=== PATIENT | female | born 1980 | race Two or more races ===

== ENCOUNTER 2016-09-05 05:52 | Emergency (ER) | payer OTHER ==
[2016-09-05] MEDS ORDERED: Ketorolac 60 MG/2 ML SDV IM ONE (06:16)
[2016-09-05] MEDS ORDERED: Acetaminophen/HYDROcodone 325-7.5 MG Tab PO ONE (06:17)
--- NOTE | 2016-09-05 06:20 | EDM.PDOC ---
ED HPI GENERAL MEDICAL PROBLEM - General Chief Complaint: Upper Extremity Injury/Pain Stated Complaint: SHOULDER PAIN Time Seen by Provider: 09/05/16 06:10 - History of Present Illness INITIAL COMMENTS - FREE TEXT/NARRATIVE: HISTORY AND PHYSICAL: History of present illness: The patient is a 36-year-old female with no stated medical problems with a history of episodic chronic pain to her left shoulder and presents with more intense pain but similar character to her prior episodes that started at 9 PM last night. 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 She spoke with her provider in the clinic about this chronic pain but because she did not want to see pain management and did not want to take pills and she was not having any active pain this oblong was put on hold. The patient denies any strenuous activity and has had no falls or direct trauma to the area but states that she again has the discomfort in the same location, the anterior part of her shoulder, but his weight more intense it has ever been of late. The pain does not radiate down her arm and she has no neurosensory changes in that arm. She feels that she has limited range of motion because of the discomfort and she has no chest pain fever chills shortness of breath or back pain. Patient did not take any medications prior to coming here or last evening Review of systems: As per history of present illness and below otherwise all systems reviewed and negative. Past medical history: As per history of present illness and as reviewed below otherwise noncontributory. Surgical history: As per history of present illness and as reviewed below otherwise noncontributory. Social history: No reported history of drug or alcohol abuse. Family history: As per history of present illness and as reviewed below otherwise noncontributory. Physical exam: General: Well-developed well-nourished female who is nontoxic but tearful in the room. Vital signs have been reviewed by me. HEENT: Atraumatic, normocephalic, negative for conjunctival pallor or scleral icterus, mucous membranes moist, throat clear, neck supple, nontender, trachea midline. There are no midline step-offs tenderness defects the cervical spine and no trapezius or posterior upper back tenderness Lungs: Clear to auscultation, breath sounds equal bilaterally, chest nontender. Heart: S1S2, regular, negative for clicks, rubs, or JVD. Abdomen: Soft, nondistended, nontender. NABS Pelvis: Deferred Genitourinary: Deferred. Rectal: Deferred. Extremities: Atraumatic, negative for cords or calf pain. Neurovascular unremarkable. There are no palpable deformities of the left upper extremity from the clavicle down to the fingers but there is decreased range of motion at the shoulder joint due to discomfort. There is exquisite tenderness at the trigger point and fullness in this location. There is no warmth or erythema. Neuro: Awake, alert, oriented. Cranial nerves II through XII unremarkable. Cerebellum unremarkable. Motor and sensory unremarkable throughout. Exam nonfocal. Back: There are no midline step-offs or defects of the thoracic or lumbar spine no scapular tenderness on the left and no posterior rib tenderness Diagnostics: Left shoulder x-ray Therapeutics: Toralexandru Shay Impression: Acute on chronic left shoulder pain Definitive disposition and diagnosis as appropriate pending reevaluation and review of above. 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: Musculoskeletal History: Reports: None Neurological History: Reports: None Psychiatric History: Reports: None Endocrine/Metabolic History: Reports: None Hematologic History: Reports: None Immunologic History: Reports: None Oncologic (Cancer) History: Reports: None Dermatologic History: Reports: None - Infectious Disease History Infectious Disease History: Reports: TB - Past Surgical History HEENT Surgical History: Reports: Tonsillectomy Cardiovascular Surgical History: Reports: None Respiratory Surgical History: Reports: None GI Surgical History: Reports: None Female Surgical History: Reports: Breast Implant, Section Social & Family History - Family History Family Medical History: Noncontributory - Tobacco Use Smoking Status *Q: Never Smoker - Recreational Drug Use Recreational Drug Use: No Review of Systems - Review of Systems Review Of Systems: ROS reveals no pertinent complaints other than HPI. Trauma Exam - Physical Exam Exam: See Below (See dictation) Course - Vital Signs Last Recorded V/S: Last Vital Signs Temp 37.1 C 09/05/16 07:18 Pulse 81 09/05/16 07:18 Resp 18 09/05/16 07:18 BP 107/76 09/05/16 07:18 Pulse Ox 100 09/05/16 07:18 - Orders/Labs/Meds Orders: Active Orders 24 hr Category Date Time Status DME for Discharge [COMM] Stat Oth 09/05/16 06:57 Ordered Meds: Medications Discontinued Medications Generic Name Dose Route Start Last Admin Trade Name Gonsalo PRN Reason Stop Dose Admin Hydrocodone Bitart/Acetaminophen 1 tab 09/05/16 06:17 09/05/16 06:50 [place] 325-7.5 Mg PO 09/05/16 06:18 1 tab ONETIME ONE Administration Ketorolac Tromethamine 60 mg 09/05/16 06:16 09/05/16 06:49 Toradol IM 09/05/16 06:17 60 mg ONETIME ONE Administration Prednisone 40 mg 09/05/16 06:58 09/05/16 07:04 Prednisone PO 09/05/16 06:59 40 mg ONETIME ONE Administration Departure - Departure Time of Disposition: 07:10 Disposition: Home, Self-Care 01 Condition: fair Clinical Impression: Chronic left shoulder pain, Bursitis of shoulder, left - Discharge Information Instructions: Shoulder Pain Referrals: PCP,None [Primary Care Provider] - Forms: ED Department Discharge Additional Instructions: The following information is given to patients seen in the emergency department who are being discharged to home. This information is to outline your options for follow-up care. We provide all patients seen in our emergency department with a follow-up referral. The need for follow-up, as well as the timing and circumstances, are variable depending upon the specifics of your emergency department visit. If you don't have a primary care physician on staff, we will provide you with a referral. We always advise you to contact your personal physician following an emergency department visit to inform them of the circumstance of the visit and for follow-up with them and/or the need for any referrals to a consulting specialist. The emergency department will also refer you to a specialist when appropriate. This referral assures that you have the opportunity for followup care with a specialist. All of these measure are taken in an effort to provide you with optimal care, which includes your followup. Under all circumstances we always encourage you to contact your private physician who remains a resource for coordinating your care. When calling for followup care, please make the office aware that this follow-up is from your recent emergency room visit. If for any reason you are refused follow-up, please contact the [facility] emergency department at and ask to speak to the emergency department charge nurse. [facility] Specialty Care--Orthopedic clinic Professional Building [address] [place] [address] [address] [place] [address] [facility] Primary care- Internal Medicine and Family [facility] [address] [place] [id number] Ice to area of swelling and discomfort and use medications as prescribed. Wear sling for comfort to try to start moving the area around as much as you are capable of. Please call and followup with our orthopedics clinic using resources given to above and return to ER as needed and as discussed - My Orders Last 24 Hours: My Active Orders 09/05/16 06:57 DME for Discharge [COMM] Stat - Assessment/Plan Last 24 Hours: My Active Orders 09/05/16 06:57 DME for Discharge [COMM] Stat
[2016-09-05] MEDS ORDERED: predniSONE 20 MG Tab PO ONE (06:58)
[2016-09-05 07:30] VITALS: BP 107/76
--- NOTE | 2016-09-05 10:51 | CR ---
EXAM DATE: 09/05/16 PATIENT'S AGE: 36 Patient: TAMIA MENJIVAR Facility: [place], [place] Site . Site : 1980 Study: XRay Shoulder Left [id number]/16/2017 6:49:54 AM Ordering Physician: Awais Clifton Final Report: INDICATION: chronic pain x 4 years. sudden pain last night INDICATION: Chronic pain for 4 years. TECHNIQUE: Left shoulder, three views. COMPARISON: None FINDINGS: Bones: Alignment is normal. No fractures or bone lesions. There is a calcific or ossific density projected about the left humeral head and greater tuberosity , neither of which appear acute. Joint spaces: Unremarkable. Soft tissues: Unremarkable. IMPRESSION: No acute bone abnormality. No dislocation on the transscapular Y-view. Dictated by Chano Welsh MD @ 09/05/2016 6:55:21 AM Dictated by: Chano Welsh MD @ 09/05/2016 06:55:41 (Electronic Signature) Report Signed by Proxy. [facility] HOSPITALMichelle
== END 2016-09-05 07:18 | disposition home or self-care (01) ==
LOC: MW.ED 05:52
DX: M75.52 Bursitis of left shoulder (principal); Z98.890 Other specified postprocedural states; Z79.899 Other long term (current) drug therapy
CPT/HCPCS: 73030; 96372; 99283; A9270; J1885

== ENCOUNTER → 2016-09-08 | Outpatient (CLI) | payer OTHER ==
[2016-09-08 09:35] LABS: CHLORIDE,CL 105 mmol/L (98-110); SODIUM,NA 138 mmol/L (136-146)
[2016-09-15 16:05] LABS: HPV 16 Not Detected (NOTDET); HPV 18 Not Detected (NOTDET)
== END ==
LOC: MW.CHFP 08:42
PROVIDERS: ATTEND Family Medicine
DX: Z00.00 Encounter for general adult medical examination without abnormal findings (principal); F32.9 Major depressive disorder, single episode, unspecified
CPT/HCPCS: 36415; 80053; 80061; 84443; 85027; 87624; G0145

== ENCOUNTER → 2016-09-12 | Outpatient (CLI) | payer OTHER ==
--- NOTE | 2016-09-12 16:22 | MR ---
EXAMINATION: MRI of the left shoulder HISTORY: Shoulder pain COMPARISON: Radiographs dated 09/05/2016 TECHNIQUE: Multiplanar multisequence images obtained of the left shoulder without contrast. FINDINGS: The acromion is convex. No significant subacromial or subdeltoid fluid. The supraspinatus and infraspinatus tendons appear grossly intact. There is mild edema within the humeral head anterio r and superiorly there is also mild edema within the glenoid. The long head biceps tendon is present within the bicipital groove. The subscapularis and teres minor tendons appear intact. No significan t joint effusion. The inferior glenohumeral ligament is intact. IMPRESSION: 1. Mild subcortical edema within the superior lateral aspect of the humeral head just adjacent to th e supraspinatus insertion anteriorly. 2. No definite evidence of a rotator cuff tear. 3. Mild edema within the glenoid and coracoid process.
== END ==
LOC: MW.MRI 13:00
PROVIDERS: ATTEND Physician Assistant
DX: M25.512 Pain in left shoulder (principal)
CPT/HCPCS: 73221-26-LT; 73221-LT

== ENCOUNTER 2017-07-01 19:28 | Emergency (ER) | payer SELFPAY ==
[2017-07-01] MEDS ORDERED: Sodium Chloride 0.9% 2.5 ML Syringe FLUSH PRN (19:49)
[2017-07-01] MEDS ORDERED: Sodium Chloride 0.9% 10 ML Syringe FLUSH PRN (19:49)
[2017-07-01] MEDS ORDERED: Sodium Chloride 0.9% 1,000 ML IV ONE (19:49)
--- NOTE | 2017-07-01 19:52 | EDM.PDOC ---
ED HPI GENERAL MEDICAL PROBLEM - General Chief Complaint: Syncope Stated Complaint: AMB Time Seen by Provider: 07/01/17 19:38 - History of Present Illness INITIAL COMMENTS - FREE TEXT/NARRATIVE: HISTORY AND PHYSICAL: History of present illness: The patient is a 37-year-old female with a history of anxiety and no other chronic medical problems who in the past is followed with Marybeth Fernando in our clinic but briefly moved away and was not following and now has since returned to [facility] and presents via EMS after having a near syncopal event while being on the toilet. The patient says that she had a normal day today and did eat her meals but she did not hydrate as much as usual and did have several alcoholic beverages. Drinking alcohol is not typical for her. The patient says that she was on the toilet having a bowel movement and was slightly pushing and then felt weak and lightheaded and almost passed out. She did not fall off the toilet. She did not hit her head and has no head neck or back pain and she never had chest pain or shortness of breath. She has no abdominal pain nausea vomiting and no upper respiratory symptoms recently. According to the spouse she has had a similar episode in the past when she was on the toilet. She was told that potentially she pushed too hard and caused her to get lightheaded. She 's never been diagnosed with orthostatic hypotension but her blood pressure tends to run on the lower side per her although the patient does not agree with that. She does say that if she changes positions quickly in the past she will get a "head matthews". Patient denies as her has a vasectomy. The patient currently in the ED denies any complaints and says she's feels back at her baseline although she has some generalized weakness; she had no focal neurologic changes or weakness in any of her extremities throughout these events. Review of systems: As per history of present illness and below otherwise all systems reviewed and negative. Past medical history: As per history of present illness and as reviewed below otherwise noncontributory. Surgical history: As per history of present illness and as reviewed below otherwise noncontributory. Social history: No reported history of drug or alcohol abuse. Family history: As per history of present illness and as reviewed below otherwise noncontributory. Physical exam: Gen.: Well-developed well-nourished female who is nontoxic and vital signs are noted by me. On my examination her blood pressure is 100/60. HEENT: Atraumatic, normocephalic, pupils reactive, negative for conjunctival pallor or scleral icterus, mucous membranes moist, throat clear, neck supple, nontender, trachea midline. Lungs: Clear to auscultation, breath sounds equal bilaterally, chest nontender. Heart: S1S2, regular rate and rhythm no overt murmurs are appreciated Abdomen: Soft, nondistended, nontender. Negative for masses or hepatosplenomegaly. NABS Pelvis: Stable nontender. Genitourinary: Deferred. Rectal: Deferred. Extremities: Atraumatic, negative for cords or calf pain. Neurovascular unremarkable. Full range of motion without defects or deficits Neuro: Awake, alert, oriented. Cranial nerves II through XII unremarkable. Cerebellum unremarkable. Motor and sensory unremarkable throughout. Exam nonfocal. Diagnostics: EKG orthostatic vitals CBC CMP troponin UA chest x-ray CT scan of the head Therapeutics: IV O2 monitor IV fluids Discussed all testing results with the patient and at bedside and the need for follow-up. She has seen Dr. Fernando in the past and I expressed that she can call and schedule an appointment to follow-up with her. I've also discussed dietary modification for the low protein albumin and calcium levels. She states understanding Impression: Near syncope, history of same stable, rule out vasovagal event and orthostatic hypotension Definitive disposition and diagnosis as appropriate pending reevaluation and review of above. 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: Musculoskeletal History: Reports: None Neurological History: Reports: None Psychiatric History: Reports: Anxiety, Depression Endocrine/Metabolic History: Reports: None Hematologic History: Reports: None Immunologic History: Reports: None Oncologic (Cancer) History: Reports: None Dermatologic History: Reports: None - Infectious Disease History Infectious Disease History: Reports: Chicken Pox, TB - Past Surgical History HEENT Surgical History: Reports: Tonsillectomy Cardiovascular Surgical History: Reports: None Respiratory Surgical History: Reports: None GI Surgical History: Reports: None Female Surgical History: Reports: Breast Implant, Section Social & Family History - Family History Family Medical History: Noncontributory - Tobacco Use Smoking Status *Q: Former Smoker Used Tobacco, but Quit: Yes Month Tobacco Last Used: 2008 - Caffeine Use Caffeine Use: Reports: Coffee - Recreational Drug Use Recreational Drug Use: Yes Drug Use in Last 12 Months: No Recreational Drug Type: Reports: Marijuana/Hashish ED ROS GENERAL - Review of Systems Review Of Systems: ROS reveals no pertinent complaints other than HPI. ED EXAM, GENERAL - Physical Exam Exam: See Below (See dictation) Course - Vital Signs Last Recorded V/S: Last Vital Signs Temp 36.6 C 07/01/17 21:00 Pulse 82 07/01/17 21:00 Resp 16 07/01/17 21:00 BP 87/62 L 07/01/17 21:00 Pulse Ox 98 07/01/17 21:00 Orthostatic Blood Pressure [ 103/78 Standing] Orthostatic Blood Pressure [ 106/58 Sitting] Orthostatic Blood Pressure [ 96/64 Supine] - Orders/Labs/Meds Orders: Active Orders 24 hr Category Date Time Status Cardiac Monitoring [RC] . DIRECTED Care 07/01/17 19:48 Active EKG Documentation Completion [RC] STAT Care 07/01/17 19:48 Active Orthostatic Vital Signs [RC] ASDIRECTED Care 07/01/17 19:49 Active Pulse Oximetry [RC] ASDIRECTED Care 07/01/17 19:48 Active Chest 1V Frontal [CR] Stat Exams 07/01/17 19:49 Taken Head wo Cont [CT] Stat Exams 07/01/17 19:49 Taken Sodium Chloride 0.9% [Saline Flush] Med 07/01/17 19:49 Active 10 ml FLUSH ASDIRECTED PRN Sodium Chloride 0.9% [Saline Flush] Med 07/01/17 19:49 Active 2.5 ml FLUSH ASDIRECTED PRN Saline Lock Insert [OM.PC] Stat Oth 07/01/17 19:48 Ordered Medication Orders Sodium Chloride (Saline Flush) 10 ml FLUSH ASDIRECTED PRN PRN Reason: Keep Vein Open Sodium Chloride (Saline Flush) 2.5 ml FLUSH ASDIRECTED PRN PRN Reason: Keep Vein Open Labs: Laboratory Tests 07/01/17 07/01/17 07/01/17 Range/Units 19:55 20:01 20:01 WBC 6.27 (4.0-11.0) K/uL RBC 4.17 L (4.30-5.90) M/uL Hgb 10.8 L (12.0-16.0) g/dL Hct 34.0 L (36.0-46.0) % MCV 81.5 (80.0-98.0) fL MCH 25.9 L (27.0-32.0) pg MCHC 31.8 (31.0-37.0) g/dL RDW Std Deviation 42.2 (28.0-62.0) fl RDW Coeff of Tod 14 (11.0-15.0) % Plt Count 190 (150-400) K/uL MPV 12.00 (7.40-12.00) fL Neut % (Auto) 58.4 (48.0-80.0) % Lymph % (Auto) 32.4 (16.0-40.0) % [place] % (Auto) 7.5 (0.0-15.0) % Eos % (Auto) 1.4 (0.0-7.0) % Baso % (Auto) 0.3 (0.0-1.5) % Neut # (Auto) 3.7 (1.4-5.7) K/uL Lymph # (Auto) 2.0 (0.6-2.4) K/uL [place]acken # (Auto) 0.5 (0.0-0.8) K/uL Eos # (Auto) 0.1 (0.0-0.7) K/uL Baso # (Auto) 0.0 (0.0-0.1) K/uL Nucleated RBC % 0.0 /100WBC Nucleated RBCs # 0 K/uL Sodium 142 (136-145) mmol/L Potassium 4.4 (3.5-5.1) mmol/L Chloride 109 H (98-107) mmol/L Carbon Dioxide 25.3 (21.0-32.0) mmol/L BUN 14 (7.0-18.0) mg/dL Creatinine 0.7 (0.6-1.0) mg/dL Est Cr Clr Drug Dosing 80.57 mL/min Estimated GFR (MDRD) > 60.0 ml/min Glucose 107 H (74-106) mg/dL Calcium 7.9 L (8.5-10.1) mg/dL Total Bilirubin 0.1 L (0.2-1.0) mg/dL AST 18 (15-37) IU/L ALT 21 (14-63) IU/L Alkaline Phosphatase 61 (46-116) U/L Troponin I < 0.050 (0.000-0.056) ng/mL Total Protein 6.2 L (6.4-8.2) g/dL Albumin 3.1 L (3.4-5.0) g/dL Globulin 3.1 (2.0-3.5) g/dL Albumin/Globulin Ratio 1.0 L (1.3-2.8) Urine Color YELLOW Urine Appearance CLEAR Urine pH 6.0 (5.0-8.0) Ur Specific [place] 1.025 (1.001-1.035) Urine Protein NEGATIVE (NEGATIVE) mg/dL Urine Glucose (UA) NEGATIVE (NEGATIVE) mg/dL Urine Ketones NEGATIVE (NEGATIVE) mg/dL Urine Occult Blood TRACE-INTACT (NEGATIVE) Urine Nitrite NEGATIVE (NEGATIVE) Urine Bilirubin NEGATIVE (NEGATIVE) Urine Urobilinogen 0.2 (<2.0) EU/dL Ur Leukocyte Esterase NEGATIVE (NEGATIVE) Urine RBC 0-3 (0-2/HPF) Urine WBC 0-3 (0-5/HPF) Ur Epithelial Cells FEW (NONE-FEW) Urine Bacteria FEW (NEGATIVE) Urine Mucus MODERATE (NONE-MOD) Meds: Medications Generic Name Dose Route Start Last Admin Trade Name Freq PRN Reason Stop Dose Admin Sodium Chloride 10 ml 07/01/17 19:49 Saline Flush FLUSH ASDIRECTED PRN Keep Vein Open Sodium Chloride 2.5 ml 07/01/17 19:49 Saline Flush FLUSH ASDIRECTED PRN Keep Vein Open Discontinued Medications Generic Name Dose Route Start Last Admin Trade Name Freq PRN Reason Stop Dose Admin Sodium Chloride 1,000 mls @ 999 mls/hr 07/01/17 19:49 07/01/17 20:11 Normal Saline IV 07/01/17 20:49 999 mls/hr STAT ONE Administration Departure - Departure Time of Disposition: 21:02 Disposition: Home, Self-Care 01 Condition: Good Clinical Impression: Near syncope, Vasovagal episode - Discharge Information Referrals: PCP,None [Primary Care Provider] - Forms: ED Department Discharge Additional Instructions: The following information is given to patients seen in the emergency department who are being discharged to home. This information is to outline your options for follow-up care. We provide all patients seen in our emergency department with a follow-up referral. The need for follow-up, as well as the timing and circumstances, are variable depending upon the specifics of your emergency department visit. If you don't have a primary care physician on staff, we will provide you with a referral. We always advise you to contact your personal physician following an emergency department visit to inform them of the circumstance of the visit and for follow-up with them and/or the need for any referrals to a consulting specialist. The emergency department will also refer you to a specialist when appropriate. This referral assures that you have the opportunity for followup care with a specialist. All of these measure are taken in an effort to provide you with optimal care, which includes your followup. Under all circumstances we always encourage you to contact your private physician who remains a resource for coordinating your care. When calling for followup care, please make the office aware that this follow-up is from your recent emergency room visit. If for any reason you are refused follow-up, please contact the [facility] emergency department at and ask to speak to the emergency department charge nurse. [facility] Primary care- Internal Medicine and Family [address] [address] Please call the clinic tomorrow to schedule a follow-up appointment as we discussed and try to increase dairy and other calcium rich foods in her diet. Return to ER as needed and as discussed - My Orders Last 24 Hours: My Active Orders 07/01/17 19:48 Cardiac Monitoring [RC] . DIRECTED EKG Documentation Completion [RC] STAT Pulse Oximetry [RC] ASDIRECTED Saline Lock Insert [OM.PC] Stat 07/01/17 19:49 Orthostatic Vital Signs [RC] ASDIRECTED Chest 1V Frontal [CR] Stat Head wo Cont [CT] Stat Sodium Chloride 0.9% [Saline Flush] 10 ml FLUSH ASDIRECTED PRN Sodium Chloride 0.9% [Saline Flush] 2.5 ml FLUSH ASDIRECTED PRN - Assessment/Plan Last 24 Hours: My Active Orders 07/01/17 19:48 Cardiac Monitoring [RC] . DIRECTED EKG Documentation Completion [RC] STAT Pulse Oximetry [RC] ASDIRECTED Saline Lock Insert [OM.PC] Stat 07/01/17 19:49 Orthostatic Vital Signs [RC] ASDIRECTED Chest 1V Frontal [CR] Stat Head wo Cont [CT] Stat Sodium Chloride 0.9% [Saline Flush] 10 ml FLUSH ASDIRECTED PRN Sodium Chloride 0.9% [Saline Flush] 2.5 ml FLUSH ASDIRECTED PRN
[2017-07-01 20:30] LABS: CHLORIDE,CL 109 mmol/L (98-107); SODIUM,NA 142 mmol/L (136-145)
[2017-07-01 21:35] VITALS: BP 96/65
--- NOTE | 2017-07-02 16:20 | CR ---
EXAM DATE: 07/01/17 PATIENT'S AGE: 37 Patient: TAMIA MENJIVAR Facility: [place], [place] Site . Site : 1980 Study: XRay Chest [id number]/11/2018 8:47:18 PM Ordering Physician: Awais Clifton Final Report: INDICATION: syncope INDICATION: Syncope. TECHNIQUE: Chest 1 view. COMPARISON: None FINDINGS: Cardiovascular and mediastinum: Heart size and vasculature are normal in caliber and appearance. Mediastinum is within normal limits. Lungs and pleural space: Lungs are clear. No sign of infiltrate or mass. No sign of pleural effusion. No pneumothorax. Bones and soft tissues: No significant findings. IMPRESSION: Lungs are clear. Dictated by Chano Welsh MD @ 07/01/2017 8:54:11 PM Dictated by: Chano Welsh MD @ 07/01/2017 20:54:16 (Electronic Signature) Report Signed by Proxy. MT[facility]le
--- NOTE | 2017-07-02 16:20 | CT ---
EXAM DATE: 07/01/17 PATIENT'S AGE: 37 Patient: TAMIA MENJIVAR Facility: [place], [place] Site . Site : 1980 Study: CT Head [id number] 8:44:33 PM Ordering Physician: Awais Clifton Final Report: INDICATION: Dizziness TECHNIQUE: CT head without contrast. COMPARISON: None FINDINGS: CSF spaces: Within normal limits for age. Brain parenchyma: The noriega-white differentiation is normal. No sign of mass, hemorrhage, or midline shift. Skull base and calvarium: Maxillary and ethmoid sinus mucosal thickening. The visualized orbits are grossly unremarkable. No skull fractures. IMPRESSION: Unremarkable noncontrast head CT. Dictated by Nishant Davis MD @ 07/01/2017 8:53:37 PM Dictated by: Nishant Davis MD @ 07/01/2017 20:53:44 (Electronic Signature) Report Signed by Proxy. [email or web address]
== END 2017-07-01 21:30 | disposition home or self-care (01) ==
LOC: MW.ED 19:28
DX: R55 Syncope and collapse (principal); F32.9 Major depressive disorder, single episode, unspecified; Z87.891 Personal history of nicotine dependence; Z79.899 Other long term (current) drug therapy
CPT/HCPCS: 36415; 70450; 71045; 80053; 81001; 84484; 85025; 93005; 96360; 99285; J7040; 99284

== ENCOUNTER 2018-10-31 05:23 | Emergency (ER) | payer OTHER | END 2018-10-31 06:14 | disposition left against medical advice (07) | LOC: MW.ED 05:23 | DX: Z53.21 Procedure and treatment not carried out due to patient leaving prior to being seen by health care provider (principal) ==

== ENCOUNTER 2023-02-26 14:27 | Emergency (ER) | payer SELFPAY ==
[2023-02-26 15:07] LABS: BASOPHILS ABSOLUTE AUTO 0.04 K/uL (0.00-0.20); BASOPHILS PERCENT AUTO 0.5 % (0.0-1.0); EOSINOPHILS ABSOLUTE AUTO 0.15 K/uL (0.00-0.45); EOSINOPHILS PERCENT AUTO 1.7 % (0.0-6.0); HEMATOCRIT 39.8 % (37.0-47.0); HEMOGLOBIN 12.8 g/dL (12.0-16.0); IMMATURE GRAN ABSOLUTE AUTO 0.02 K/uL (0.00-0.05); IMMATURE GRAN PERCENT AUTO 0.2 % (0.0-0.4); LYMPHOCYTES ABSOLUTE AUTO 2.96 K/uL (1.00-4.80); LYMPHOCYTES PERCENT AUTO 33.7 % (24.0-44.0); MEAN CORPUSCULAR HEMOGLOBIN 26.4 pg (28.0-32.0); MEAN CORPUSCULAR HGB CONC 32.2 g/dL (32.0-36.0); MEAN CORPUSCULAR VOLUME 82.1 fL (83.0-99.0); MEAN PLATELET VOLUME 12.1 fL (9.4-12.3); MONOCYTES ABSOLUTE AUTO 0.52 K/uL (0.00-0.80); MONOCYTES PERCENT AUTO 5.9 % (0.0-8.0); NEUTROPHILS ABSOLUTE AUTO 5.09 K/uL (1.80-7.70); PLATELET COUNT,PLT 219 K/uL (150-400); RED BLOOD CELL COUNT 4.85 M/uL (4.10-5.30); WHITE BLOOD CELL COUNT,WBC 8.78 K/uL (3.9-11.3)
[2023-02-26 15:17] LABS: APPEARANCE,URINE CLEAR; BILIRUBIN,URINE NEGATIVE (NEGATIVE); COLOR,URINE YELLOW; GLUCOSE,URINE NEGATIVE (NEGATIVE); KETONES,URINE NEGATIVE (NEGATIVE); LEUKOCYTE ESTERASE,URINE NEGATIVE (NEGATIVE); NITRITE,URINE NEGATIVE (NEGATIVE); OCCULT BLOOD,URINE TRACE-INTACT (NEGATIVE); PH,URINE 7.5 (5.0-8.0); PROTEIN,URINE NEGATIVE (NEGATIVE); UROBILINOGEN,URINE 0.2 EU/dL (<2.0)
[2023-02-26 15:25] LABS: AMPHETAMINES SCREEN, URINE NEGATIVE (CUTOFF=500); BARBITURATE SCREEN,URINE NEGATIVE (CUTOFF=200); BENZODIAZEPINES SCREEN,URINE NEGATIVE (CUTOFF=150); BUPRENORPHINE SCREEN,URINE NEGATIVE (CUTOFF=10); METHADONE SCREEN, URINE NEGATIVE (CUTOFF=200); METHAMPHETAMINES SCREEN, URINE NEGATIVE (CUTOFF=500); OXYCODONE SCREEN,URINE NEGATIVE (CUT0FF=100); PCP SCREEN,URINE NEGATIVE (CUTOFF=25); PROPOXYPHENE SCREEN,URINE NEGATIVE (CUTOFF=300); THC SCREEN,URINE 20 NG/ML NEGATIVE (CUTOFF=50)
[2023-02-26 15:26] LABS: BACTERIA,URINE FEW (NEGATIVE); EPITHELIAL CELLS,URINE FEW (NONE-FEW); RBC,URINE 0-2 (0-2/HPF); WBC,URINE 0-1 (0-5/HPF)
[2023-02-26 15:53] LABS: A/G RATIO 1.1 (0.9-1.6); ACETAMINOPHEN <2.0 ug/mL; ALANINE AMINOTRANSFERASE,ALT 19 IU/L (14-63); ALBUMIN 3.9 g/dL (3.4-5.0); ALKALINE PHOSPHATASE 74 U/L (46-116); ASPARTATE AMNIOTRANSFERASE,AST 13 IU/L (15-37); BILIRUBIN TOTAL 0.3 mg/dL (0.2-1.0); BLOOD UREA NITROGEN,BUN 10 mg/dL (7.0-18.0); CALCIUM 8.9 mg/dL (8.5-10.1); CHLORIDE,CL 104 mmol/L (98-107); CREATININE 0.8 mg/dL (0.6-1.0); EST CRCL DRUG DOSING (CG) 66.47 mL/min; GLUCOSE RANDOM 91 mg/dL (74-106); MAGNESIUM 2.1 mg/dL (1.8-2.4); POTASSIUM,K 3.5 mmol/L (3.5-5.1); PROTEIN TOTAL,TP 7.5 g/dL (6.4-8.2); SALICYLATE 0.6 mg/dL (0.0-20.0); SODIUM,NA 142 mmol/L (136-145); T3 FREE 2.68 pg/mL (2.18-3.98); T4 FREE 0.95 ng/dL (0.76-1.46); TSH ULTRASENSITIVE 0.83 uIU/mL (0.36-3.74)
[2023-02-26 15:59] LABS: CARBON DIOXIDE,CO2 27.9 mmol/L (21.0-32.0); ESTIMATED GFR 95 mL/min (>60); ETHANOL BLOOD MEDICAL < 3.0 mg/dL
[2023-02-26] MEDS ORDERED: diphenhydrAMINE 50 MG Cap PO STA (19:04)
[2023-02-27 09:53] VITALS: BP 114/74; PULSE 83
== END 2023-02-27 10:03 ==
LOC: MW.ED 14:27
DX: R45.851 Suicidal ideations (principal); Z59.00 Homelessness unspecified
CPT/HCPCS: 36415; 80053; 80143; 80179; 80305; 80307; 81001; 81025; 83735; 84439; 84443; 84481; 85025; 99285; A9270

== ENCOUNTER 2025-02-01 15:57 | Emergency (ER) | payer SELFPAY ==
[2025-02-01] MEDS ORDERED: Sodium Chloride 0.9% 2.5 ML Syringe FLUSH PRN (16:09)
[2025-02-01] MEDS ORDERED: Sodium Chloride 0.9% 10 ML Syringe FLUSH PRN (16:09)
[2025-02-01 16:24] LABS: BASOPHILS ABSOLUTE AUTO 0.02 K/uL (0.00-0.20); BASOPHILS PERCENT AUTO 0.2 % (0.0-1.0); EOSINOPHILS ABSOLUTE AUTO 0.04 K/uL (0.00-0.45); EOSINOPHILS PERCENT AUTO 0.5 % (0.0-6.0); IMMATURE GRAN ABSOLUTE AUTO 0.02 K/uL (0.00-0.05); IMMATURE GRAN PERCENT AUTO 0.2 % (0.0-0.4); LYMPHOCYTES ABSOLUTE AUTO 1.76 K/uL (1.00-4.80); LYMPHOCYTES PERCENT AUTO 20.1 % (24.0-44.0); MEAN PLATELET VOLUME 11.2 fL (9.4-12.3); MONOCYTES ABSOLUTE AUTO 0.57 K/uL (0.00-0.80); MONOCYTES PERCENT AUTO 6.5 % (0.0-8.0); NEUTROPHILS ABSOLUTE AUTO 6.36 K/uL (1.80-7.70); NEUTROPHILS PERCENT AUTO 72.5 % (41.0-71.0); NRBC ABSOLUTE 0.00 K/uL (0.00-0.02); NRBC PERCENT 0.0 /100WBC (0.0-0.2); PLATELET COUNT,PLT 221 K/uL (150-400); RED BLOOD CELL COUNT 4.57 M/uL (4.10-5.30); WHITE BLOOD CELL COUNT,WBC 8.77 K/uL (3.9-11.3)
[2025-02-01 16:52] LABS: A/G RATIO 0.9 (0.9-1.6); ALANINE AMINOTRANSFERASE,ALT 63 IU/L (14-63); ASPARTATE AMNIOTRANSFERASE,AST 26 IU/L (15-37); BILIRUBIN TOTAL 0.3 mg/dL (0.2-1.0); BLOOD UREA NITROGEN,BUN 13 mg/dL (7.0-18.0); CARBON DIOXIDE,CO2 27.8 mmol/L (21.0-32.0); CHLORIDE,CL 103 mmol/L (98-107); CREATININE 0.8 mg/dL (0.6-1.0); EST CRCL DRUG DOSING (CG) 65.13 mL/min; GLUCOSE RANDOM 97 mg/dL (74-106); POTASSIUM,K 3.6 mmol/L (3.5-5.1); PRO B-TYPE NATRIUR PEPT,BNPPRO 44 pg/mL (0-125); PROTEIN TOTAL,TP 7.2 g/dL (6.4-8.2); SODIUM,NA 140 mmol/L (136-145)
[2025-02-01 17:01] LABS: ESTIMATED GFR 94 mL/min (>60)
[2025-02-01] MEDS: Iopamidol 755 Mg/ML 100 ML Bottle IVPUSH ONE (17:34)
[2025-02-01 20:11] VITALS: BP 116/73; PULSE 79
== END 2025-02-01 20:09 | disposition home or self-care (01) ==
LOC: MW.ED 15:57
DX: R55 Syncope and collapse (principal); F17.200 Nicotine dependence, unspecified, uncomplicated; Z75.3 Unavailability and inaccessibility of health-care facilities
CPT/HCPCS: 36415; 70450; 71045; 71275; 80053; 83880; 84484; 85025; 85379; 93005; 96360; 99285; J7030; Q9967; 93010; 99284